=== PATIENT | female | born 1985 | race Caucasian/White ===

== ENCOUNTER 2022-02-18 20:53 | Emergency (ER) | payer SELFPAY ==
[~2022-02-18] VITALS: Ht 170 cm; Wt 64.0 kg
[~2022-02-18 20:53] MED LIST: DOXY100C2 PO; HYDR1TAB PO; NITR-65 PO; NITR100C3 PO; ONDA8TAB6 PO; OXYC-12 PO; PREN1TAB39; PREN1TAB39 PO; PROM25SU10 PR; SULF1TAB38 PO; ZLP10T PO
[2022-02-18 21:12] LABS: BILIRUBIN,URINE NEGATIVE (NEGATIVE); CLARITY,URINE CLEAR; COLOR,URINE YELLOW; GLUCOSE, URINE (UA) NEGATIVE (NEGATIVE); KETONES,URINE NEGATIVE (NEGATIVE); LEUKOCYTE ESTERASE ,URINE NEGATIVE (NEGATIVE); NITRITE,URINE POSITIVE (NEGATIVE); PROTEIN,URINE NEGATIVE (NEGATIVE)
--- NOTE | 2022-02-18 21:18 | ED Abdominal Pain ---
General Chief Complaint: Abdominal/GI Problems Stated Complaint: ABDOMINAL PAIN Nursing Triage Note: PT AMB TO RM 6 WITH C/O LOW ABD PAIN THAT RADIATES TO HER BACK, INCREASED PAIN WHILE ON HER PERIOD X3 MONTHS AND HEAVIER BLEEDING. PT STATES SHE STARTED HER PERIOD 2 DAY AGO AND CANT STAND THE PAIN Source of Information: Patient Exam Limitations: No Limitations (SIVA CAUSEY APRN) History of Present Illness Date Seen by Provider: Feb 18, 2022 Time Seen by Provider: 20:47 Initial Comments This is a well-appearing 36-year-old female who presented to the ER with complaints of suprapubic abdominal pain that radiates up towards her umbilicus and nausea. States the pain started a few days ago shortly after starting her menstrual cycle. Describes as sharp/stabbing pain and "tingling" sensation when she urinates. No vaginal itching or discharge. No pain with intercourse. No fever, chills, cough, shortness of breath, vomiting, diarrhea, constipation. (SIVA CAUSEY APRN) Allergies and Home Medications Allergies Coded Allergies: Morphine (Verified Allergy, Severe, THROAT CLOSES UP, 06/11/10) Penicillins (Verified Allergy, Unknown, 06/30/06) Uncoded Allergies: ORANGES (Allergy, Unknown, 02/14/08) Patient Home Medication List Home Medication List Reviewed: Yes (SIVA CAUSEY APRN) Doxycycline Hyclate (Doxycycline Hyclate) 100 Mg Capsule, 1 EACH PO BID Prescribed by: VENTURA RIVAS MD on 05/06/121806 Doxycycline Hyclate (Doxycycline Hyclate) 100 Mg Tablet, 100 MG PO BID Prescribed by: SIVA CAUSEY on 02/18/222135 Hydrocodone Bit/Acetaminophen (Vicodin 5-500 Tablet) 1 Each Tablet, 1 EACH PO Q4HR PRN Prescribed by: VENTURA RIVAS MD on 05/06/12 180 Trimethoprim/Sulfamethoxazole (Bactrim Ds) 1 Ea Tablet, 1 EA PO BID, (Reported) Entered as Reported by: BERNARDA MENSAH on 05/11/12 1050 Review of Systems Review of Systems Constitutional: no symptoms reported EENTM: No Symptoms Reported Respiratory: No Symptoms Reported Cardiovascular: No Symptoms Reported Gastrointestinal: See HPI Genitourinary: See HPI Musculoskeletal: no symptoms reported Skin: no symptoms reported Psychiatric/Neurological: No Symptoms Reported Endocrine: No Symptoms Reported Hematologic/Lymphatic: No Symptoms Reported (SIVA CAUSEY APRN) Past Qoqrsja-Rajjun-Ynukqh Hx Patient Social History Tobacco Use?: No Use of E-Cig and/or Vaping dev: Yes E-Cig or Vaping type used: Nicotine Use of E-Cig and/or Vaping Rick: Current Everyday User Substance use?: Yes Substance type: Marijuana Substance frequency: Couple times a week Alcohol Use?: Yes Alcohol type: Beer Alcohol Frequency: Rarely Pt feels they are or have been: No (SIVA CAUSEY APRN) Past Medical History Last Menstrual Period: Feb 16, 2022 Reproductive Disorders: Yes (SIVA CAUSEY APRN) Physical Exam Vital Signs Vital Signs - First Documented 02/18/22 21:00 Temp 36.0 Pulse 105 Resp 20 B/P (MAP) 144/79 (100) (TANMAY DE LEÓN DO) Vital Signs Capillary Refill : (SIVA CAUSEY APRN) Height/Weight/BMI Height: '" Weight: lbs. oz. kg; 22.00 BMI Method:Stated General Appearance: WD/WN, no apparent distress HEENT: PERRL/EOMI, normal ENT inspection Neck: full range of motion, normal inspection Respiratory: lungs clear, normal breath sounds, no respiratory distress, no accessory muscle use Cardiovascular: regular rate, rhythm, no murmur Gastrointestinal: normal bowel sounds, soft, other (suprapubic tenderness, mid lower abdominal tenderness ) Extremities: normal range of motion, normal inspection Back: normal inspection, no CVA tenderness, no vertebral tenderness Neurologic/Psychiatric: no motor/sensory deficits, alert, normal mood/affect, oriented x 3 Skin: normal color, warm/dry (SIVA CAUSEY APRN) Progress/Results/Core Measures Results/Orders Lab Results Laboratory Tests Test 02/18/22 21:00 Range/Units Urine Color YELLOW Urine Clarity CLEAR Urine pH 6.0 5-9 Urine Specific [place] >=1.030 1.016-1.022 Urine Protein NEGATIVE NEGATIVE Urine Glucose (UA) NEGATIVE NEGATIVE Urine Ketones NEGATIVE NEGATIVE Urine Nitrite POSITIVE H NEGATIVE Urine Bilirubin NEGATIVE NEGATIVE Urine Urobilinogen 0.2 < = 1.0 MG/DL Urine Leukocyte Esterase NEGATIVE NEGATIVE Urine RBC (Auto) 3+ H NEGATIVE Urine RBC 25-50 H /HPF Urine WBC RARE /HPF Urine Squamous Epithelial Cells 0-2 /HPF Urine Crystals NONE /LPF Urine Bacteria MODERATE H /HPF Urine Casts NONE /LPF Urine Mucus SMALL H /LPF Urine Culture Indicated YES (TANMAY DE LEÓN DO) Medications Given in ED Current Medications Medications Dose Ordered Sig/Beth Route Start Time Stop Time Status Last Admin Dose Admin Doxycycline Hyclate 100 mg ONCE ONCE PO 02/18/22 21:45 02/18/22 21:46 DC 02/18/22 21:50 100 MG Ketorolac Tromethamine 30 mg ONCE ONCE IVP 02/18/22 21:30 02/18/22 21:31 DC 02/18/22 21:50 30 MG Ondansetron HCl 4 mg ONCE ONCE IVP 02/18/22 21:30 02/18/22 21:31 DC 02/18/22 21:50 4 MG (TANMAY DE LEÓN DO) Vital Signs/I&O 02/18/22 02/18/22 21:00 21:55 Temp 36.0 36.0 Pulse 105 94 Resp 20 18 B/P (MAP) 144/79 (100) 134/80 (TANMAY DE LEÓN DO) Blood Pressure Mean: 100 Departure Impression Primary Impression: Urinary tract infection Disposition: 01 HOME, SELF-CARE Condition: Improved Departure-Patient Inst. Decision time for Depature: 21:34 (SIVA CAUSEY APRN) Referrals: COBY KUMAR DO (PCP/Family) Primary Care Physician Patient Instructions: Urinary Tract Infections in Adults Add. Discharge Instructions: Plan: 1. Take all of your antibiotics as directed and complete full course. 2. This medication may make your skin sensitive to sun and cause mercedes. Make sure you wear sunblock or limit sun exposure. 3. Drink plenty of fluids to stay hydrated. 4. Follow up with your doctor for any persistent symptoms. 5. Return for any new, concerning, or worsening symptoms. All discharge instructions reviewed with patient and/or family. Voiced understanding. Scripts Doxycycline Hyclate (Doxycycline Hyclate) 100 Mg Tablet 100 MG PO BID for 7 Days, #14 TAB 0 Refills Prov: SIVA CAUSEY APRN 02/18/22 ATTENDING PHYSICIAN NOTE: I WAS PHYSICALLY PRESENT ER PHYSICIAN, BUT I WAS NOT INVOLVED IN ANY DECISION MAKING OR ANY CARE OF THIS PATIENT. (TANMAY DE LEÓN DO) SIVA CAUSEY APRN Feb 18, 2022 21:18 TANMAY DE LEÓN DO Feb 19, 2022 05:22
[2022-02-18 21:24] LABS: BACTERIA,URINE MODERATE /HPF; RBC,URINE 25-50 /HPF; SQUAMOUS EPITHELIAL CELL,UR 0-2 /HPF; WBC,URINE RARE /HPF
[2022-02-18] MEDS ORDERED: KETOROLAC 30 MG/ML VIAL IVP ONE (21:30)
[2022-02-18] MEDS ORDERED: ONDANSETRON 4 MG/2 ML (SDV) Z0FRAN IVP ONE (21:30)
[2022-02-18] MEDS ORDERED: DOXY100T2 PO (21:36)
[2022-02-18] MEDS ORDERED: DOXYCYCLINE 100 MG (VIBRAMYCIN) TABLET PO ONE (21:45)
[2022-02-18 21:55] VITALS: BP 134/80
== END 2022-02-18 22:06 | disposition home or self-care (01) ==
LOC: EDUNIT# 20:53 → ER 20:55
DX: N39.0 Urinary tract infection, site not specified (principal); F17.290 Nicotine dependence, other tobacco product, uncomplicated
CPT/HCPCS: 81000; 84703; 87077; 87088; 87186

== ENCOUNTER 2022-08-23 21:05 | Emergency (ER) | payer OTHER ==
[~2022-08-23 21:05] MED LIST changes: +DOXY100T2 PO
--- NOTE | 2022-08-23 22:07 | ED General ---
General Chief Complaint: Cough/Cold/Flu Symptoms Stated Complaint: VOMITING/CONGESTION/COUGH Nursing Triage Note: PT ARRIVAL TO ER VIA PRIVATE VEHICLE FROM HOME WITH COMPLAINT OF FLU SYMPTOMS, BODY ACHES, FEVER, COUGH, AND DRY HEAVES. PATIENT STATES THAT MULTIPLE PEOPLE IN HOME ARE FLU+. PT STATES THAT SHE NEEDS A WORK NOTE FOR HER JOB OR SHE IS FIRED. THATS WHY PATIENT CAME TO ER. PATIENT STATES "I KNOW I HAVE THE FLU AND IT HAS TO RUN ITS COURSE, BUT MY BOSS IS A FUCKING ASSHOLE AND SAID IM FIRE IF I DONT HAVE A DOCTORS NOTE". Source of Information: Patient Exam Limitations: No Limitations History of Present Illness Date Seen by Provider: Aug 23, 2022 Time Seen by Provider: 21:55 Initial Comments Patient is a 36-year-old female who presents to the emergency department with body aches, fever, cough, and nausea that began yesterday. She states her brother recently tested positive flu A. She currently lives with her brother. She states there are 2 other people in the household who also have similar symptoms. She is also requesting a work note as she states that her boss told her she would be fired if she could not present note from a physician. Patient denies any diarrhea, shortness of breath, chest pain, neck stiffness. She states she has been taking ibuprofen to try to keep her fever down. She states she has not formally checked her temperature since the symptoms began. Allergies and Home Medications Allergies Coded Allergies: Morphine (Verified Allergy, Severe, THROAT CLOSES UP, 06/11/10) Penicillins (Verified Allergy, Unknown, 06/30/06) Uncoded Allergies: ORANGES (Allergy, Unknown, 02/14/08) Patient Home Medication List Home Medication List Reviewed: Yes Doxycycline Hyclate (Doxycycline Hyclate) 100 Mg Capsule, 1 EACH PO BID Prescribed by: VENTURA RIVAS MD on 05/06/121806 Doxycycline Hyclate (Doxycycline Hyclate) 100 Mg Tablet, 100 MG PO BID Prescribed by: SIVA CAUSEY on 02/18/222135 Hydrocodone Bit/Acetaminophen (Vicodin 5-500 Tablet) 1 Each Tablet, 1 EACH PO Q4HR PRN Prescribed by: VENTURA RIVAS MD on 05/06/121806 Trimethoprim/Sulfamethoxazole (Bactrim Ds) 1 Ea Tablet, 1 EA PO BID, (Reported) Entered as Reported by: BERNARDA MENSAH on 05/11/12 1050 Review of Systems Review of Systems Constitutional: see HPI, chills, fever, malaise EENTM: no symptoms reported Respiratory: see HPI, cough Cardiovascular: no symptoms reported Gastrointestinal: see HPI, nausea Genitourinary: no symptoms reported Musculoskeletal: no symptoms reported Skin: no symptoms reported Psychiatric/Neurological: No Symptoms Reported Hematologic/Lymphatic: No Symptoms Reported Immunological/Allergic: no symptoms reported Past Zzaeghw-Mtfstw-Vcfahe Hx Patient Social History Tobacco Use?: No Use of E-Cig and/or Vaping dev: No Substance use?: Yes Substance type: Marijuana Substance frequency: Couple times a week Alcohol Use?: No Pt feels they are or have been: No Immunizations Up To Date Influenza Vaccine Up-to-Date: No; Not Current Past Medical History Reproductive Disorders: Yes Physical Exam Vital Signs Vital Signs - First Documented 08/23/22 21:29 Temp 36.8 Pulse 104 Resp 22 B/P (MAP) 132/75 (94) Pulse Ox 98 O2 Delivery Room Air Capillary Refill : Less Than 3 Seconds Height, Weight, BMI Height: '" Weight: lbs. oz. kg; 22.00 BMI Method:Stated General Appearance: No Apparent Distress, WD/WN HEENT: PERRL/EOMI, TMs Normal, Normal ENT Inspection, Pharynx Normal Neck: Full Range of Motion, Normal Inspection, Non Tender, Supple Respiratory: Chest Non Tender, Lungs Clear, Normal Breath Sounds, No Accessory Muscle Use, No Respiratory Distress Cardiovascular: Regular Rate, Rhythm Gastrointestinal: Non Tender, Soft Neurologic/Psychiatric: Alert, Oriented x3, No Motor/Sensory Deficits, Normal Mood/Affect Skin: Normal Color, Warm/Dry Progress/Results/Core Measures Suspected Sepsis SIRS Temperature: Pulse: 104 Respiratory Rate: 22 Blood Pressure 132 /75 Mean: 94 Results/Orders My Orders Orders - JANETH COLLINS APRN Covid 19 Inhouse Test (08/23/22 21:56) Influenza A And B By Pcr (08/23/22 21:56) Isolation Central Supply Req (08/23/22 21:56) Vital Signs/I&O 08/23/22 08/23/22 21:29 21:29 Temp 36.8 Pulse 104 Resp 22 B/P (MAP) 132/75 (94) Pulse Ox 98 O2 Delivery Room Air Room Air Capillary Refill : Less Than 3 Seconds Blood Pressure Mean: 94 Progress Note : Progress Note Patient is nontoxic and well-hydrated on exam. No adventitious lung sounds or increased work of breathing noted. Vital signs are reassuring. No nuchal rigidity appreciated. Patient was ambulatory to the exam room without issue. Viral etiology of symptoms is very likely especially given a flu a positive individual in the household. A flu and COVID test were obtained but I told the patient that she is very likely positive for flu irregardless of what the results of the rapid test may show. She will be given a work note and a prescription for Zofran to help with the nausea. Anticipatory guidance and supportive care discussed. Follow-up with PCP. Patient verbalized understanding. Departure Impression Primary Impression: Influenza Disposition: 01 HOME, SELF-CARE Condition: Stable Departure-Patient Inst. Decision time for Depature: 22:10 Referrals: NO,LOCAL PHYSICIAN (PCP/Family) Primary Care Physician Patient Instructions: Flu, Adult ED JANETH COLLINS APRN Aug 23, 2022 22:07
[2022-08-23 22:21] VITALS: BP 132/75
== END 2022-08-23 22:21 | disposition home or self-care (01) ==
LOC: EDUNIT# 21:05 → ER 21:10
DX: J11.1 Influenza due to unidentified influenza virus with other respiratory manifestations (principal); Z28.310 Unvaccinated for COVID-19; Z20.822 Contact with and (suspected) exposure to COVID-19
CPT/HCPCS: 87636; 99282

== ENCOUNTER 2023-04-21 18:30 | Emergency (ER) | payer SELFPAY ==
--- NOTE | 2023-04-21 19:08 | ED Cough/URI ---
General Stated Complaint: ROSE, SORE THROAT, N/V/D, BODY ACHES, COUGH, CONGEST Source: patient Exam Limitations: no limitations History of Present Illness Date Seen by Provider: Apr 21, 2023 Time Seen by Provider: 18:34 Initial Comments 37-year-old female presents to the ER with multiple complaints. She states that she has been sick for the last 5 days, it started out with a sore throat, runny nose, and cough, and then developed into chest pain, vomiting, and diarrhea. She also reported having a headache and sweating and chills. She reports that her sore throat, cough, and headache has improved, but the chest pain, vomiting, diarrhea has continued. She reports that she has diarrhea constantly, and is vomiting approximately 5-6 times a day. She reports the chest pain is constant, but fluctuates in intensity, states coughing makes her chest pain worse. She denies abdominal pain and dysuria. Thinks her last menstrual cycle was in March, states she has a menstrual cycle every month. Allergies and Home Medications Allergies Coded Allergies: Morphine (Verified Allergy, Severe, THROAT CLOSES UP, 06/11/10) Penicillins (Verified Allergy, Unknown, 06/30/06) Uncoded Allergies: ORANGES (Allergy, Unknown, 02/14/08) Patient Home Medication List Home Medication List Reviewed: Yes Doxycycline Hyclate (Doxycycline Hyclate) 100 Mg Capsule, 1 EACH PO BID Prescribed by: VENTURA RIVAS MD on 05/06/121806 Doxycycline Hyclate (Doxycycline Hyclate) 100 Mg Tablet, 100 MG PO BID Prescribed by: SIVA CAUSEY on 02/18/222135 Hydrocodone Bit/Acetaminophen (Vicodin 5-500 Tablet) 1 Each Tablet, 1 EACH PO Q4HR PRN Prescribed by: VENTURA RIVAS MD on 05/06/121806 Ondansetron (Ondansetron Odt) 4 Mg Tab.rapdis, 4 MG SL Q4H PRN for NAUSEA/VOMITING Prescribed by: Yulisa Dalal on 04/21/232051 Trimethoprim/Sulfamethoxazole (Bactrim Ds) 1 Ea Tablet, 1 EA PO BID, (Reported) Entered as Reported by: BERNARDA MENSAH on 05/11/12 1050 Review of Systems Review of Systems Constitutional: see HPI Past Urrwehs-Xnsmxs-Byazsk Hx Past Medical History Reproductive Disorders: Yes Physical Exam Vital Signs - First Documented 04/21/23 18:56 Pulse 103 Resp 16 B/P (MAP) 148/111 (123) Pulse Ox 99 O2 Delivery Room Air Capillary Refill : Height: '" Weight: lbs. oz. kg; 22.00 BMI Method:Stated General Appearance: WD/WN, no apparent distress HEENT: TMs normal, pharyngeal erythema; No tonsillar exudate Neck: supple, normal inspection Respiratory: lungs clear, normal breath sounds, no respiratory distress, no accessory muscle use Cardiovascular: regular rate, rhythm Extremities: normal range of motion, normal inspection Neurologic/Psychiatric: alert, normal mood/affect Skin: normal color, warm/dry Progress/Results/Core Measures Suspected Sepsis SIRS Temperature: Pulse: Respiratory Rate: Laboratory Tests 04/21/23 19:06: White Blood Count 8.4 Blood Pressure / Mean: Laboratory Tests 04/21/23 19:06: Creatinine 0.71, INR Comment 1.0, Platelet Count 304, Total Bilirubin 0.4 Results/Orders Lab Results Laboratory Tests Test 04/21/23 19:06 04/21/23 19:16 Range/Units White Blood Count 8.4 4.3-11.0 10^3/uL Red Blood Count 4.98 3.80-5.11 10^6/uL Hemoglobin 13.2 11.5-16.0 g/dL Hematocrit 41 35-52 % Mean Corpuscular Volume 82 80-99 fL Mean Corpuscular Hemoglobin 27 25-34 pg Mean Corpuscular Hemoglobin Concent 32 32-36 g/dL Red Cell Distribution Width 16.3 H 10.0-14.5 % Platelet Count 304 130-400 10^3/uL Mean Platelet Volume 11.4 9.0-12.2 fL Immature Granulocyte % (Auto) 0 % Neutrophils (%) (Auto) 73 42-75 % Lymphocytes (%) (Auto) 22 12-44 % Monocytes (%) (Auto) 4 0-12 % Eosinophils (%) (Auto) 1 0-10 % Basophils (%) (Auto) 1 0-10 % Neutrophils # (Auto) 6.1 1.8-7.8 10^3/uL Lymphocytes # (Auto) 1.8 1.0-4.0 10^3/uL Monocytes # (Auto) 0.3 0.0-1.0 10^3/uL Eosinophils # (Auto) 0.1 0.0-0.3 10^3/uL Basophils # (Auto) 0.0 0.0-0.1 10^3/uL Immature Granulocyte # (Auto) 0.0 0.0-0.1 10^3/uL Prothrombin Time 13.1 12.2-14.7 SEC INR Comment 1.0 0.8-1.4 Activated Partial Thromboplast Time 29 24-35 SEC Sodium Level 139 135-145 MMOL/L Potassium Level 3.7 3.6-5.0 MMOL/L Chloride Level 108 H 98-107 MMOL/L Carbon Dioxide Level 21 21-32 MMOL/L Anion Gap 10 5-14 MMOL/L Blood Urea Nitrogen 5 L 7-18 MG/DL Creatinine 0.71 0.60-1.30 MG/DL Estimat Glomerular Filtration Rate 114 BUN/Creatinine Ratio 7 Glucose Level 92 70-105 MG/DL Calcium Level 9.5 8.5-10.1 MG/DL Corrected Calcium 9.2 8.5-10.1 MG/DL Magnesium Level 2.2 1.6-2.4 MG/DL Total Bilirubin 0.4 0.1-1.0 MG/DL Aspartate Amino Transf (AST/SGOT) 14 5-34 U/L Alanine Aminotransferase (ALT/SGPT) 13 0-55 U/L Alkaline Phosphatase 62 40-136 U/L Troponin I < 0.028 <0.028 NG/ML Total Protein 7.9 6.4-8.2 GM/DL Albumin 4.4 3.2-4.5 GM/DL Influenza Type A (RT-PCR) Not Detected Not Detecte Influenza Type B (RT-PCR) Not Detected Not Detecte SARS-CoV-2 RNA (RT-PCR) Not Detected Not Detecte Group A Streptococcus Screen NEGATIVE NEGATIVE My Orders Orders - YULISA ADEN PROGRAM STRATEGIST Covid 19 Inhouse Test (04/21/23 18:34) Influenza A And B By Pcr (04/21/23 18:34) Cbc With Automated Diff (04/21/23 19:03) Magnesium (04/21/23 19:03) Chest 1 View, Ap/Pa Only (04/21/23 19:03) Ekg Tracing (04/21/23 19:03) Comprehensive Metabolic Panel (04/21/23 19:03) Protime With Inr (04/21/23 19:03) Partial Thromboplastin Time (04/21/23 19:03) Monitor-Rhythm Ecg Trace Only (04/21/23 19:03) Ed Iv/Invasive Line Start (04/21/23 19:03) Troponin I Hiram (04/21/23 19:03) Ns Iv 1000 Ml (Sodium Chloride 0.9%) (04/21/23 19:15) Ondansetron Injection (Zofran Injectio (04/21/23 19:15) Ketorolac Injection (Ketorolac Injection (04/21/23 19:15) Ua Culture If Indicated (04/21/23 19:03) Urine Bedside (04/21/23 19:03) Rapid Strep A Screen (04/21/23 19:08) Throat Culture Strep A Confirm (04/21/23 19:16) Ns Iv 1000 Ml (Sodium Chloride 0.9%) (04/21/23 20:15) Medications Given in ED Current Medications Medications Dose Ordered Sig/Beth Route Start Time Stop Time Status Last Admin Dose Admin Ketorolac Tromethamine 15 mg ONCE ONCE IVP 04/21/23 19:15 04/21/23 19:16 DC 04/21/23 19:25 15 MG Ondansetron HCl 4 mg ONCE ONCE IVP 04/21/23 19:15 04/21/23 19:16 DC 04/21/23 19:25 4 MG Vital Signs/I&O 04/21/23 18:56 Pulse 103 Resp 16 B/P (MAP) 148/111 (123) Pulse Ox 99 O2 Delivery Room Air Capillary Refill : Progress Note : Progress Note Patient seen and evaluated, resting comfortably in bed, no acute distress. Based on exam and symptoms, this is likely a viral URI. Due to chest pain, chest pain workup initiated including CBC, CMP, magnesium, troponin, EKG, chest x-ray. COVID, flu, strep swab ordered. IV fluids, Zofran, Toradol ordered. 2009 labs and chest x-ray reviewed. CBC grossly normal. CMP grossly normal, chloride slightly elevated 108. Troponin negative. Rapid strep negative, flu and COVID-negative. Chest x-ray shows no acute abnormality. Patient has been unable to provide urine sample, second liter of IV fluids ordered. 2049 patient reports she feels a lot better, will go ahead with discharge at this time. Discharge instructions and return precautions provided. ECG Initial ECG Impression Date: Apr 21, 2023 Initial ECG Impression Time: 19:10 Initial ECG Rate: 80 Initial ECG Rhythm: Normal Sinus Initial ECG Intervals: Normal Initial ECG Impression: Normal Initial ECG Comparisson: No Previous ECG Available Diagnostic Imaging Diagonstic Imaging: Xray Plain Films/CT/US/NM/MRI: chest Comments [facility], [place] NAME: [facility] REC#: [id number] PT STATUS: REG ER : 1985 PHYSICIAN: YULISA ADEN APRN ADMIT DATE: 04/21/23/ER Signed Date of Exam:04/21/23 CHEST 1 VIEW, AP/PA ONLY EXAMINATION: Chest, 1 view. HISTORY: Chest pain. COMPARISON: None available. FINDINGS: Heart size and pulmonary vasculature are normal. The lungs are clear without consolidation, pleural effusion or pneumothorax. The osseous structures are intact. IMPRESSION: No acute radiographic abnormality in the chest. Dictated by: Dictated on workstation # [id number] Dict: 04/21/231932 Trans: 04/21/231942 [facility] [id number] Interpreted by: DORA HUDDLESTON DO Electronically signed by: DORA HUDDLESTON DO 04/21/231942 Departure Impression Primary Impression: URI (upper respiratory infection) Disposition: 01 HOME, SELF-CARE Condition: Stable Departure-Patient Inst. Decision time for Depature: 20:50 Referrals: NO,LOCAL PHYSICIAN (PCP/Family) Primary Care Physician Patient Instructions: Upper Respiratory Infection ED Add. Discharge Instructions: Take Zofran as needed for nausea, it can cause constipation. Obtain Imodium [id number] and take as needed for diarrhea. Make sure you are drinking plenty of fluids, stay away from caffeinated, high sugar beverages. You may take Tylenol or ibuprofen as needed for pain. Return for any new, concerning, or worsening symptoms. Scripts Ondansetron (Ondansetron Odt) 4 Mg Tab.rapdis 4 MG SL Q4H PRN for NAUSEA/VOMITING, #20 TAB 0 Refills Prov: YULISA ADEN APRN 04/21/23 Work/School Note: Work Release Form Date Seen in the Emergency Department: Apr 21, 2023 Return to Work: Apr 24, 2023 Restrictions: No Restrictions YULISA ADEN APRN Apr 21, 2023 19:08
[2023-04-21 19:12] LABS: BASOPHILS % (AUTO) 1 % (0-10); EOSINOPHILS # (AUTO) 0.1 10^3/uL (0.0-0.3); EOSINOPHILS % (AUTO) 1 % (0-10); HEMATOCRIT 41 % (35-52); HEMOGLOBIN 13.2 g/dL (11.5-16.0); LYMPHOCYTES # (AUTO) 1.8 10^3/uL (1.0-4.0); LYMPHOCYTES % (AUTO) 22 % (12-44); MEAN CORPUSCULAR HEMOGLOBIN 27 pg (25-34); MEAN CORPUSCULAR HGB CONC 32 g/dL (32-36); MEAN CORPUSCULAR VOLUME 82 fL (80-99); MEAN PLATELET VOLUME 11.4 fL (9.0-12.2); MONOCYTES # (AUTO) 0.3 10^3/uL (0.0-1.0); MONOCYTES % (AUTO) 4 % (0-12); NEUTROPHILS # (AUTO) 6.1 10^3/uL (1.8-7.8); NEUTROPHILS % (AUTO) 73 % (42-75); PLATELET COUNT 304 10^3/uL (130-400); WHITE BLOOD COUNT 8.4 10^3/uL (4.3-11.0)
[2023-04-21] MEDS ORDERED: ONDANSETRON 4 MG/2 ML (SDV) Z0FRAN IVP ONE (19:15)
[2023-04-21] MEDS ORDERED: NS IV 1000 ML 1,000 ML IV SCH ×2 (19:15→20:15)
[2023-04-21] MEDS ORDERED: KETOROLAC INJ 15 MG/ML VIAL IVP ONE (19:15)
[2023-04-21 19:22] LABS: ALBUMIN 4.4 GM/DL (3.2-4.5); CHLORIDE 108 MMOL/L (98-107); POTASSIUM 3.7 MMOL/L (3.6-5.0); SODIUM 139 MMOL/L (135-145)
[2023-04-21 19:24] LABS: CALCIUM 9.5 MG/DL (8.5-10.1)
[2023-04-21 19:25] LABS: GLUCOSE 92 MG/DL (70-105); TOTAL PROTEIN 7.9 GM/DL (6.4-8.2)
[2023-04-21 19:26] LABS: CARBON DIOXIDE 21 MMOL/L (21-32)
[2023-04-21 19:27] LABS: BILIRUBIN,TOTAL 0.4 MG/DL (0.1-1.0)
[2023-04-21 19:28] LABS: ALKALINE PHOSPHATASE 62 U/L (40-136); CREATININE SERUM 0.71 MG/DL (0.60-1.30); GFR ESTIMATED 114; PROTHROMBIN TIME PATIENT 13.1 SEC (12.2-14.7)
[2023-04-21 19:29] LABS: BUN/CREATININE RATIO 7
[2023-04-21 19:31] LABS: ALANINE AMINOTRANSFERASE 13 U/L (0-55); MAGNESIUM 2.2 MG/DL (1.6-2.4)
--- NOTE | 2023-04-21 19:35 | Diagnostic Imaging Report ---
EXAMINATION: Chest, 1 view. HISTORY: Chest pain. COMPARISON: None available. FINDINGS: Heart size and pulmonary vasculature are normal. The lungs are clear without consolidation, pleural effusion or pneumothorax. The osseous structures are intact. IMPRESSION: No acute radiographic abnormality in the chest. Dictated by: Dictated on workstation # [id number]
[2023-04-21] MEDS ORDERED: ONDA4TAB11 SL (20:52)
[2023-04-21 21:01] VITALS: BP 150/95
== END 2023-04-21 21:02 | disposition home or self-care (01) ==
LOC: EDUNIT# 18:30 → ER 18:31
DX: J06.9 Acute upper respiratory infection, unspecified (principal); Z20.822 Contact with and (suspected) exposure to COVID-19
CPT/HCPCS: 36415; 71045; 80053; 83735; 84484; 85025; 85610; 85730; 87430; 87636; 93005; 93041